=== PATIENT | female | born 1985 | race Caucasian/White ===

== ENCOUNTER 2024-05-16 21:57 | Emergency (ER) | payer BC ==
[~2024-05-16] VITALS: Ht 170.2 cm; Wt 57.2 kg
[2024-05-16] MEDS ORDERED: BUPR450T PO (22:31)
[2024-05-16] MEDS ORDERED: LIDOCAINE HCL 1% 20 ML VIAL ONE (22:43)
[2024-05-16] MEDS: LIDOCAINE HCL 1% 20 ML VIAL TP ONE (22:48)
[2024-05-16] MEDS: TDAP DIPH,PERTUSS,TET VAC/PF 0.5 ML DISP.SYRIN IM ONE (22:49)
[2024-05-16 23:10] VITALS: BP 108/48; TEMP 98; O2SAT 99
== END 2024-05-16 23:10 | disposition home or self-care (01) ==
LOC: ER 22:12
DX: S01.21XA Laceration without foreign body of nose, initial encounter (principal); F17.200 Nicotine dependence, unspecified, uncomplicated; Z79.899 Other long term (current) drug therapy; W01.0XXA Fall on same level from slipping, tripping and stumbling without subsequent striking against object, initial encounter; Y93.89 Activity, other specified; Y92.89 Other specified places as the place of occurrence of the external cause; Y99.8 Other external cause status
CPT/HCPCS: 12011; 99282; J3490; A4606; A4663